=== PATIENT | female | born 1965 | race Caucasian/White ===

== ENCOUNTER → 2024-01-06 07:19 | Outpatient (REF) | payer BC, SELFPAY | LOC: WDC 07:19 | PROVIDERS: ATTENDING PHYSICIAN Obstetrics & Gynecology Gynecology; FAMILY PHYSICIAN Family Medicine | DX: Z12.31 Encounter for screening mammogram for malignant neoplasm of breast (principal) | CPT/HCPCS: 77063; 77067 ==

== ENCOUNTER → 2024-05-10 11:42 | Outpatient (REF) | payer OTHER, SELFPAY | LOC: DHCBC/DCA 11:42 | PROVIDERS: ATTENDING PHYSICIAN Physician Assistant; FAMILY PHYSICIAN Family Medicine | DX: E78.2 Mixed hyperlipidemia (principal); R07.89 Other chest pain; R94.31 Abnormal electrocardiogram [ECG] [EKG]; R20.0 Anesthesia of skin | CPT/HCPCS: 78452; 93017; A9500 ==

== ENCOUNTER → 2024-05-22 06:55 | Outpatient (REF) | payer OTHER, SELFPAY | LOC: RCS 06:55 | PROVIDERS: ATTENDING PHYSICIAN Physician Assistant; FAMILY PHYSICIAN Family Medicine | DX: R06.02 Shortness of breath (principal); R07.89 Other chest pain; R94.31 Abnormal electrocardiogram [ECG] [EKG] | CPT/HCPCS: 93306 ==

== ENCOUNTER → 2024-10-02 07:08 | Outpatient (REF) | payer OTHER, SELFPAY ==
--- NOTE | 2024-10-02 11:41 | EEG.RPT ---
Electroencephalogram Report
Recording
Date of EE10/02/24
Type of EEG: Routine
Length of EEG recordin mins
Done with Video Recording: Yes
Patient Status: Outpatient
Recording Conditions: Awake and Drowsy
Hyperventilation Performed: Yes
Photic Stimulation Performed: Yes
Report
Background: Posterior dominant rhythm, 11-12 Hz, symmetric and reactive
Sleep: None
Focal/rhythmic/epileptiform: None
Seizures: None
Hyperventilation: symmetric slowing
Photic Stim: normal driving response
== END ==
LOC: EEG 07:08
PROVIDERS: ATTENDING PHYSICIAN Psychiatry & Neurology Neurology; FAMILY PHYSICIAN Family Medicine
DX: R25.9 Unspecified abnormal involuntary movements (principal)
CPT/HCPCS: 95816

== ENCOUNTER → 2024-11-02 13:47 | Outpatient (REF) | payer OTHER, SELFPAY | LOC: PAVMRI 13:47 | PROVIDERS: ATTENDING PHYSICIAN Psychiatry & Neurology Neurology; FAMILY PHYSICIAN Family Medicine | DX: R25.9 Unspecified abnormal involuntary movements (principal) | CPT/HCPCS: 70553; A9575 ==

== ENCOUNTER → 2025-01-11 07:59 | Outpatient (REF) | payer OTHER, SELFPAY | LOC: WDC 07:59 | PROVIDERS: ATTENDING PHYSICIAN Obstetrics & Gynecology Gynecology; FAMILY PHYSICIAN Family Medicine | DX: Z12.31 Encounter for screening mammogram for malignant neoplasm of breast (principal) | CPT/HCPCS: 77063; 77067 ==

== ENCOUNTER 2025-09-12 06:24 | Day surgery (SDC) | payer OTHER, SELFPAY | END 2025-09-12 08:33 | disposition home or self-care (01) | LOC: GI 06:24 | PROVIDERS: ATTENDING PHYSICIAN Internal Medicine; FAMILY PHYSICIAN Family Medicine | DX: Z12.11 Encounter for screening for malignant neoplasm of colon (principal); K57.30 Diverticulosis of large intestine without perforation or abscess without bleeding; K64.9 Unspecified hemorrhoids; Z86.0101 Personal history of adenomatous and serrated colon polyps | CPT/HCPCS: G0105 ==